=== PATIENT | female | born 1955 | race African-American/Black ===

== ENCOUNTER 2021-01-08 11:50 | Inpatient (IN) | payer BC ==
[2021-01-08 14:49] VITALS: BMI 35.6
[2021-01-08] MEDS ORDERED: MAGNESIUM HYDROX 2400MG/30ML ORAL SUSPENSION 30 ML CUP PO PRN (17:59)
[2021-01-08] MEDS ORDERED: diazePAM 5 MG TABLET PO PRN (17:59)
[2021-01-08] MEDS ORDERED: IBUPROFEN 400 MG TABLET (FP) PO PRN (17:59)
[2021-01-08] MEDS ORDERED: ACETAMINOPHEN 325 MG TABLET (FP) PO PRN ×2 (17:59)
[2021-01-08] MEDS ORDERED: hydrOXYzine PAMOATE 25 MG CAPSULE (FP) PO PRN (17:59)
[2021-01-08] MEDS ORDERED: ONDANSETRON *ODT* 4 MG TABLET SL PRN (17:59)
[2021-01-08] MEDS ORDERED: MAGNESIUM CITRATE 300 ML BOTTLE PO PRN (17:59)
[2021-01-08] MEDS ORDERED: NICOTINE 10 MG CARTRIDGE (INHALER) IH PRN (17:59)
[2021-01-08] MEDS ORDERED: METHOCARBAMOL 500 MG TABLET PO PRN (17:59)
[2021-01-08] MEDS ORDERED: guaiFENesin/D-M SUGAR-FREE/ACLHOL-FREE 118 ML BOTTLE PO PRN (18:04)
[2021-01-08] MEDS ORDERED: ERGOCALCIFEROL (VIT D2) 50,000 UNIT (1.25 MG) CAPSULE PO SCH (18:15)
[2021-01-08] MEDS: diazePAM 5 MG TABLET PO SCH (22:02)
[2021-01-08] MEDS: GABAPENTIN 400 MG CAPSULE PO SCH (22:03)
[2021-01-08] MEDS: INSULIN SLIDING SCALE (NOVOLOG) 1 VIAL SQ SCH (22:03)
[2021-01-08] MEDS: THIAMINE HCL 100 MG TABLET (FP) PO SCH (22:03)
[2021-01-08] MEDS: MELATONIN 5 MG TABLETS PO SCH (22:03)
[2021-01-09] MEDS: diazePAM 5 MG TABLET PO SCH ×4 (05:54→22:03)
[2021-01-09] MEDS: GABAPENTIN 400 MG CAPSULE PO SCH ×3 (05:54→22:03)
[2021-01-09] MEDS: MAG HYDROX/AL HYDROX/SIMETH 30 ML UNIT-DOSE CUP PO PRN ×2 (06:02→17:31)
[2021-01-09] MEDS: INSULIN SLIDING SCALE (NOVOLOG) 1 VIAL SQ SCH ×4 (08:02→22:04)
[2021-01-09 08:31] LABS: HEMATOCRIT 34.4 % (32.4-45.2); HEMOGLOBIN 11.5 GM/dL (10.7-15.3); MCH 33.5 pg (25.7-33.7); MCHC 33.5 g/dl (32.0-36.0); MEAN CELL VOLUME 100.1 fl (80-96); MEAN PLT VOLUME 9.9 fl (7.5-11.1); PLATELET COUNT 85 10^3/uL (134-434); RBC 3.44 M/mm3 (3.60-5.2); WHITE BLOOD COUNT 6.1 K/mm3 (4.0-10.0)
[2021-01-09] MEDS: MENTHOL/PHENOL 1 EACH UD MM PRN ×2 (09:31→22:30)
[2021-01-09 09:32] LABS: ALBUMIN 3.1 g/dl (3.4-5.0); BLOOD UREA NITROGEN 13.2 mg/dL (7-18); CALCIUM 8.8 mg/dL (8.5-10.1)
[2021-01-09 09:35] LABS: CREATININE 1.2 mg/dL (0.55-1.3)
[2021-01-09] MEDS ORDERED: PATIENT'S OWN MEDICATION (NON-FORMULARY) (Hydroxyzine Hcl [Hydroxyzine Hcl] 10 MG Tablet) PO SCH (10:00)
[2021-01-09] MEDS ORDERED: FOLIC ACID PO SCH (10:00)
[2021-01-09] MEDS ORDERED: VIT D3 PO SCH (10:00)
[2021-01-09] MEDS ORDERED: VIT B COMP C PO SCH (10:00)
[2021-01-09] MEDS ORDERED: [UNRECOGNIZED DRUG - OTHER] PO SCH (10:00)
[2021-01-09] MEDS: PANTOPRAZOLE 20 MG TABLET PO SCH (10:35)
[2021-01-09] MEDS: PRENATAL VITAMINS W/ FOLIC ACID TABLET (FP) PO SCH (10:35)
[2021-01-09] MEDS ORDERED: INSULIN SLIDING SCALE (NOVOLOG) 1 VIAL SQ ONE (11:15)
[2021-01-09] MEDS: SPIRONOLACTONE 25 MG TABLET PO SCH (12:44)
[2021-01-09] MEDS: ENALAPRIL MALEATE 2.5 MG TABLET PO SCH (12:44)
[2021-01-09] MEDS ORDERED: guaiFENesin 200 MG/10 ML 10 ML UNIT-DOSE CUPS PO PRN (15:31)
[2021-01-09] MEDS: guaiFENesin 200 MG/10 ML 10 ML UNIT-DOSE CUPS PO PRN (17:31)
[2021-01-09] MEDS: NICOTINE POLACRILEX 4 MG GUM BUC PRN (19:52)
[2021-01-09] MEDS: MELATONIN 5 MG TABLETS PO SCH (22:03)
[2021-01-09] MEDS: THIAMINE HCL 100 MG TABLET (FP) PO SCH (22:03)
[2021-01-10] MEDS: GABAPENTIN 400 MG CAPSULE PO SCH ×3 (06:35→22:08)
[2021-01-10] MEDS: diazePAM 5 MG TABLET PO SCH ×3 (06:36→22:09)
[2021-01-10] MEDS: NICOTINE POLACRILEX 4 MG GUM BUC PRN (06:38)
[2021-01-10] MEDS: guaiFENesin 200 MG/10 ML 10 ML UNIT-DOSE CUPS PO PRN ×2 (07:06→17:54)
[2021-01-10] MEDS: INSULIN SLIDING SCALE (NOVOLOG) 1 VIAL SQ SCH ×4 (07:45→22:11)
[2021-01-10] MEDS: SPIRONOLACTONE 25 MG TABLET PO SCH (10:22)
[2021-01-10] MEDS: PRENATAL VITAMINS W/ FOLIC ACID TABLET (FP) PO SCH (10:22)
[2021-01-10] MEDS: PANTOPRAZOLE 20 MG TABLET PO SCH (10:22)
[2021-01-10] MEDS: ENALAPRIL MALEATE 2.5 MG TABLET PO SCH (10:23)
[2021-01-10] MEDS: MAG HYDROX/AL HYDROX/SIMETH 30 ML UNIT-DOSE CUP PO PRN (10:24)
[2021-01-10] MEDS: MENTHOL/PHENOL 1 EACH UD MM PRN (17:55)
[2021-01-10] MEDS: MELATONIN 5 MG TABLETS PO SCH (22:08)
[2021-01-10] MEDS: THIAMINE HCL 100 MG TABLET (FP) PO SCH (22:08)
[2021-01-10] MEDS: BISMUTH SUBSALICYLATE 524 MG/30 ML PO PRN (22:10)
[2021-01-11] MEDS: diazePAM 5 MG TABLET PO SCH ×2 (05:49→17:07)
[2021-01-11] MEDS: GABAPENTIN 400 MG CAPSULE PO SCH ×3 (05:49→21:47)
[2021-01-11] MEDS: guaiFENesin 200 MG/10 ML 10 ML UNIT-DOSE CUPS PO PRN ×2 (05:50→14:17)
[2021-01-11] MEDS: INSULIN SLIDING SCALE (NOVOLOG) 1 VIAL SQ SCH ×4 (06:15→21:48)
[2021-01-11] MEDS: NICOTINE POLACRILEX 4 MG GUM BUC PRN (06:15)
[2021-01-11] MEDS: BISMUTH SUBSALICYLATE 524 MG/30 ML PO PRN (06:16)
[2021-01-11] MEDS: PANTOPRAZOLE 20 MG TABLET PO SCH (10:28)
[2021-01-11] MEDS: SPIRONOLACTONE 25 MG TABLET PO SCH (10:28)
[2021-01-11] MEDS: ENALAPRIL MALEATE 2.5 MG TABLET PO SCH (10:28)
[2021-01-11] MEDS: PRENATAL VITAMINS W/ FOLIC ACID TABLET (FP) PO SCH (10:28)
[2021-01-11] MEDS: MENTHOL/PHENOL 1 EACH UD MM PRN (10:30)
[2021-01-11] MEDS: THIAMINE HCL 100 MG TABLET (FP) PO SCH (21:47)
[2021-01-11] MEDS: MELATONIN 5 MG TABLETS PO SCH (21:47)
[2021-01-12] MEDS: MENTHOL/PHENOL 1 EACH UD MM PRN (04:54)
[2021-01-12] MEDS: GABAPENTIN 400 MG CAPSULE PO SCH (05:11)
[2021-01-12] MEDS ORDERED: diazePAM 5 MG TABLET PO ONE (06:00)
[2021-01-12] MEDS ORDERED: INSULIN SLIDING SCALE (NOVOLOG) 1 VIAL SQ ONE (07:00)
[2021-01-12] MEDS: INSULIN SLIDING SCALE (NOVOLOG) 1 VIAL SQ SCH (07:19)
[2021-01-12] MEDS: PANTOPRAZOLE 20 MG TABLET PO SCH (09:30)
[2021-01-12] MEDS: ENALAPRIL MALEATE 2.5 MG TABLET PO SCH (09:30)
[2021-01-12] MEDS: PRENATAL VITAMINS W/ FOLIC ACID TABLET (FP) PO SCH (09:30)
[2021-01-12] MEDS: SPIRONOLACTONE 25 MG TABLET PO SCH (09:30)
[2021-01-12 09:54] VITALS: BP 153/82; PULSE 82; TEMP 96.9
== END 2021-01-12 09:40 | disposition home or self-care (01) | DRG 897 ==
LOC: YASAS 11:50 → Y3N 17:10
PROVIDERS: ADMIT Allergy & Immunology; ATTEND Allergy & Immunology
PROC: HZ2ZZZZ Detoxification Services for Substance Abuse Treatment (ICD-10-PCS; principal; 2021-01-08)
DX: F10.230 Alcohol dependence with withdrawal, uncomplicated (principal); F14.20 Cocaine dependence, uncomplicated; F17.210 Nicotine dependence, cigarettes, uncomplicated; E11.9 Type 2 diabetes mellitus without complications; I10 Essential (primary) hypertension; B18.2 Chronic viral hepatitis C; Z79.4 Long term (current) use of insulin
CPT/HCPCS: 36415; 71046-TC-FY; 80053; 82962; 85027; 86593; 86780; C9803; U0003; U0005